=== PATIENT | female | born 1940 | race Caucasian/White ===

== ENCOUNTER 2020-12-11 15:21 | Emergency (ER) | payer MEDICARE, SELFPAY ==
[2020-12-11 15:38] VITALS: BP 141/56; PULSE 94; RESP 12; TEMP 36.7; O2SAT 100
--- NOTE | 2020-12-11 15:40 | ED.GENADULT ---
HPI - General Adult General Chief complaint: Extremity Problem,Nontraumatic Stated complaint: bloot clot Time Seen by Provider: 12/11/20 15:40 Source: patient and RN notes reviewed Mode of arrival: wheelchair Limitations: no limitations History of Present Illness HPI narrative: 80-year-old female presents with complains of of right upper leg bruising, pain, and swelling for the past 2-3 days. Eduardo reports fluctuation of swelling and pain over the past 24 to 48 hours. No treatment. History of Leukemia, recent had blood work on 12/10/2020 unable to provide lab results. Eduardo reports being on Hydroxyurea and Eliquis, in which she took this am. Eduardo reports recent long car ride of 14 hours 10 days ago, due to traveling multiple states while going to [place] to see a family member. No known injury. No radiation of pain. No numbness or tingling, or bleeding. No loss of mobility. Exacerbating factor consist of bearing weight and palpation of the area. No fever. Denies chest pain, dyspnea, or headache. Denies nausea, vomiting, and abdominal pain. Tolerating po intake well. Denies blood in stool or urine. Remains active. The patient reports she have not been diagnosed with COVID-19. The patient reports she received Moderna COVID-19 vaccine September 19, 2020 and October 21, 2020. The patient reports she is not waiting for the results of a COVID-19 lab test. The patient reports she do not have chills, weakness, or fatigue. The patient reports she do not have a new or worsening cough. The patient reports she do not have any rhinorrhea, congestion, sore throat, loss of taste or smell, and diarrhea. At this time, patient is not suspected of having COVID-19. Some parts of this dictation were generated by voice recognition software and may contain typographical and/or grammatical inaccuracies. Related Data Home Medications Medication Instructions Recorded Confirmed allopurinol 12/11/20 alprazolam 12/11/20 atenolol 12/11/20 diltiazem HCl 12/11/20 escitalopram oxalate mg 12/11/20 hydroxyurea 12/11/20 lisinopril 12/11/20 omeprazole 12/11/20 Allergies Allergy/AdvReac Type Severity Reaction Status Date / Time No Known Allergies Allergy Unverified 04/27/16 18:26 Review of Systems Review of Systems: Narrative: CONSTITUTIONAL: Denies fever, chills, sweats. EYES: Denies visual changes, redness, discharge. ENT: Denies rhinorrhea, congestion, sore throat, otalgia. CARDIOVASCULAR: Denies chest pain, palpitations, edema. RESPIRATORY: Denies dyspnea, wheezing, cough. GASTROINTESTINAL: Denies abdominal pain, nausea, vomiting, diarrhea. GENITOURINARY: Denies dysuria, hematuria, abnormal discharge SKIN: Denies rash or itching. MUSCULOSKELETAL: Denies acute back pain or myalgia. Complains of right upper leg bruising, pain, and swelling. NEUROLOGIC: Denies numbness or focal weakness. PSYCHIATRIC: Denies anxiety or depression. All other systems reviewed & are unremarkable except as noted in HPI and below. [facility] Past Medical History Medical History (Updated 12/11/20 @ 17:44 by TESS Acosta) Atrial fibrillation Hypertension Leukemia Surgical History Surgical History (Updated 12/11/20 @ 16:33 by TESS Acosta) H/O total mastectomy of left breast Family History Family History (Updated 12/11/20 @ 16:34 by TESS Acosta) Father Dementia Heart disease Mother Heart disease Social History Social History (Updated 12/11/20 @ 16:35 by TESS Acosta) Smoking status: Former smoker Tobacco type: cigarettes Second hand tobacco smoke exposure: No Alcohol intake: current Substance use: never Living arrangements: with family Occupation/Education: retired Gender identity (if verbalized by the patient): Female Sexual Orientation (if Verbalized by the Patient): Straight or Heterosexual Comments At time of signature, agree with
== END 2020-12-11 16:48 | disposition short-term general hospital (02) ==
PROVIDERS: Emergency Provider Nurse Practitioner Family
DX: R58 Hemorrhage, not elsewhere classified (principal); M79.651 Pain in right thigh; Z87.891 Personal history of nicotine dependence; I48.91 Unspecified atrial fibrillation; I10 Essential (primary) hypertension; C95.90 Leukemia, unspecified not having achieved remission; Z90.12 Acquired absence of left breast and nipple
CPT/HCPCS: 99202; G0463

== ENCOUNTER 2021-01-27 08:51 | Emergency (ER) | payer MEDICARE, SELFPAY ==
[2021-01-27] VITALS (45 sets, daily range): BP systolic 100–167; BP diastolic 61–92; PULSE 82–138; RESP 17–33; TEMP 36.8; O2SAT 80–97
--- NOTE | ~2021-01-27 | XR_ITS ---
EXAMINATION: XR chest 2V DATE: 01/27/2021 09:21 INDICATION: Shortness of breath TECHNIQUE: AP and lateral views of the chest are obtained. COMPARISON: None available FINDINGS: There are diffuse opacities throughout all lung zones, worst in the left mid and upper lung zones. There is no pleural effusion or pneumothorax. The cardiomediastinal silhouette is normal. The re is severe thoracic spondylosis. The left breast was small compared to the right, correlate for lef t breast surgery. IMPRESSION: 1. Diffuse lung disease, worst in the left mid and upper lung zones, consistent with pneumonia and/or pulmonary edema. Reviewed, dictated and finalized at location B.
--- NOTE | 2021-01-27 08:59 | ECG_ITS ---
Measurements Intervals [place] Rate: 113 P: OR: 0 QRS: 33 QRSD: 80 T: 83 QT: 334 QTc: 460 Interpretive Statements ATRIAL FIBRILLATION WITH RAPID VENTRICULAR RESPONSE VOLTAGE CRITERIA FOR LVH BORDERLINE ST-T WAVE ABNORMALITY- INF/LAT LEADS BASELINE ARTIFACT- I, II, III, AVR, AVL, AVF, V2-V6 ABNORMAL ECG Electronically Signed On 01-27-2021 9:34:47 CDT by Christopher Francis D.O.
[2021-01-27 09:22] LABS: Hematocrit 23.7 % (37.0-47.0); Hemoglobin 7.7 g/dL (12.0-15.0); Immature Platelet Fraction Pct 36.2 % (0.9-11.2); Mean Corpuscular HGB Conc 32.5 g/dl (32-36); Mean Corpuscular Hemoglobin 31.7 pg (26-34); Mean Corpuscular Volume 97.5 fl (80-100); Platelet Count Result 77 k/mm3 (150-375); Red Blood Count 2.43 M/mm3 (4.2-5.4); Red Cell Distribution Width 20.6 % (11.5-14.5)
[2021-01-27 09:24] LABS: Anion Gap 18 mmol/L (8-16); Blood Urea Nitrogen 36 mg/dL (7-17); Calcium 8.9 mg/dL (8.4-10.2); Carbon Dioxide 16 mmol/L (22-30); Chloride 100 mmol/L (98-107); Estimated CRCL calculation 18 ml/min; Estimated Glomerular Filt Rate 25; Glucose 120 mg/dL (65-105); Potassium 3.9 mmol/L (3.4-5.0); Sodium 134 mmol/L (137-145); White Blood Count 78.5 K/mm3 (4.5-10.0)
--- NOTE | 2021-01-27 09:28 | PC.NURSE ---
Samanta from lab was called to add on a BNP for room 7
--- NOTE | 2021-01-27 09:42 | ED.SOB ---
HPI - SOB/Dyspnea General Chief Complaint: Shortness of Breath/Dyspnea Stated Complaint: weakness Time Seen by Provider: 01/27/21 09:05 Source: patient and family Mode of arrival: wheelchair Limitations: no limitations History of Present Illness HPI Narrative: This is a 80 year old female that presents to the ER for weakness. Reports over the last 5 days she has become more weak and short of breath. Does report a mild cough and congestion. Reports she was recently treated with antibiotics for a sinus infection. 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 Her doctors are at [facility] where she usually gets her care. Reports she did recently have some abnormal labs, but has not followed up for these yet. She lives at home alone. Her daughter is here with her who also gives history. Denies fever, chest pain, or lower extremity edema. Related Data Home Medications Medication Instructions Recorded Confirmed allopurinol 12/11/20 alprazolam 12/11/20 atenolol 12/11/20 diltiazem HCl 12/11/20 escitalopram oxalate mg 12/11/20 omeprazole 12/11/20 Allergies Allergy/AdvReac Type Severity Reaction Status Date / Time hydroxyurea [From Hydrea] AdvReac Unknown Verified 01/27/21 09:07 Review of Systems Review of Systems: Narrative: CONSTITUTIONAL: Denies fever ENT: Reports congestion. Denies sore throat CARDIOVASCULAR: Denies chest pain, or edema. RESPIRATORY: Reports cough and dyspnea. NEUROLOGIC: Reports generalized weakness. All systems reviewed & are unremarkable except as noted in HPI and below PMFSH Past Medical History Medical History (Updated 01/27/21 @ 14:13 by Karma Garcia PA-C) Atrial fibrillation Hypertension Leukemia Surgical History Surgical History (Updated 12/11/20 @ 16:33 by TESS Acosta) H/O total mastectomy of left breast Family History Family History (Updated 12/11/20 @ 16:34 by TESS Acosta) Father Dementia Heart disease Mother Heart disease Social History Social History (Updated 12/11/20 @ 16:35 by TESS Acosta) Smoking status: Former smoker Tobacco type: cigarettes Second hand tobacco smoke exposure: No Alcohol intake: current Substance use: never Gender identity (if verbalized by the patient): Female Exam Narrative: Exam Narrative: GENERAL: Elderly, well-nourished, and in no acute distress. HEAD: Normocephalic, atraumatic. EYES: EOMI. ENT: Nares clear, no rhinorrhea or epistaxis. Mucous membranes dry. Oropharynx without tonsillar hypertrophy exudate or other lesions. Bilateral TMs pearly ackerman non-bulging NECK: Supple. No adenopathy or masses. CHEST: No respiratory distress. Rales noted throughout the lungs, (L>R). No wheezes or rhonchi HEART: Regular rate and rhythm. No murmur heard. Normal peripheral pulses. ABDOMEN: Soft, nontender, nondistended, normal active bowel sounds. EXTREMITIES: Normal range of motion. No edema. SKIN: Warm, dry, no rash. NEURO: No focal deficits. Alert and oriented x3. PSYCH: Normal mood and affect Course Consultations Consultation #1: Spoke with Dr. Bennett about patient and workup who believes patient will be better served at [facility] where her oncologist is for further evaluation and treatment if there is any possible acute need with her CML Date: 01/27/21 Time: 12:00 Consultation #2: Spoke with Jessica hospitalist FNP at [facility] about patient and work-up who accepts transfer. Patient will be awaiting bed placement Date: 01/27/21 Time: 12:30 Vital Signs Vital signs: Vital Signs Temperature 98.3 F 01/27/21 08:59 Pulse Rate 112 H 01/27/21 08:59 Respiratory Rate 24 H 01/27/21 08:59 Blood Pressure 140/78 01/27/21 08:59 Pulse Oximetry 80 L 01/27/21 08:59 Temperature 98.3 F 01/27/21 08:59 Pulse Rate 120 H 01/27/21 19:31 Respiratory Rate 24 H 01/27/21 19:31 Blood Pressure 154/92 H 01/27/21 19:01 Pulse Oximetry 97
[2021-01-27 09:49] LABS: Band Neutrophils Percent 19 % (0-6); Blastocytes 5 %; Lymphocytes Absolute Manual 7.06 K/mm3 (1.1-4.5); Monocytes Absolute Manual 6.28 K/mm3 (0.1-0.90); Monocytes Percent Manual 8 % (3-9); Neutrophils Absolute Manual 61.23 K/mm3 (1.7-7.2); Neutrophils Percent Manual 59 % (46-73); Ovalocytes 2+ (NORMAL); Platelet Estimate Decreased (Adequate); Total Cells Counted 100
[2021-01-27 09:50] LABS: Large Platelets Present; Poikilocytosis 2+ (NORMAL); Polychromasia 1+ (NORMAL); Schistocytes 1+ (NORMAL); Smudge Cells PRESENT
[2021-01-27 10:06] LABS: Base Excess ABG -5.9 mEq/l (+/-2.0); Carboxyhemoglobin 1.3 % THb (0-2.0); Device NASAL CANNULA; Fractional Inspired Oxygen 36 %; HCO3 ABG 17.5 mEq/l (22.0-26.0); Methemoglobin ABG 0.3 %THb (0-1.5); Modified Allen's Test Pass; Oxygen Content ABG 10.7 %vol (16.0-22.0); Oxygen Saturation ABG 95.4 % (95.0-100.0); Oxyhemoglobin 91.5 % THb (90.0-100.0); PCO2 ABG 26.6 mmHg (35.0-45.0); PO2 ABG 72.8 mmHg (80.0-100.0); PO2 FiO2 Ratio Arterial Blood 2.02 %; Reduced Hemoglobin 6.9 %THb (0-5.0); Site Drawn RIGHT RADIAL; Total Hemoglobin 8.2 g/dL (12.0-18.0); pH ABG 7.435 (7.350-7.450)
[2021-01-27] MEDS: METOPROLOL TARTRATE INJ 5 MG/5 ML VIAL IV PUSH (10:07)
[2021-01-27 10:08] LABS: NT Pro B Type Natriuretic Pept 21000 pg/mL (5-100)
[2021-01-27] MEDS: FUROSEMIDE INJ 40 MG/4 ML VIAL IV PUSH (10:45)
[2021-01-27 10:50] LABS: Lactic Acid Reflex 1.7 mmol/L (0.7-2.1)
[2021-01-27 10:51] LABS: Alanine Aminotransferase 10 U/L (4-35); Albumin Level 4.4 g/dL (3.5-5.1); Alkaline Phosphatase 54 U/L (38-126); Aspartate Amino Transferase 18 U/L (14-36); Bilirubin,Total 1.6 mg/dL (0.2-1.3); Lactate Dehydrogenase 822 U/L (313-618)
[2021-01-27 11:56] LABS: Procalcitonin 0.5 ng/mL
--- NOTE | 2021-01-27 12:53 | PC.NURSE ---
Up to bathroom with [address] Pt c/o dyspnea with exertion.
--- NOTE | 2021-01-27 13:10 | PC.NURSE ---
Pts son in law request a phone call when pt is put on ambulance. Can be reached at [phone] Donald
--- NOTE | 2021-01-27 18:06 | PC.NURSE ---
Nurse at [facility] unable to take report at this time.
[2021-01-27 18:16] LABS: SARS-CoV-2 RNA PCR Negative
--- NOTE | 2021-01-27 18:49 | PC.NURSE ---
made contact with [facility] to transfer pt to [facility]. company accepted with an [id number]
[2021-01-27] MEDS: ONDANSETRON INJ 4 MG/2 ML VIAL IV PUSH (19:00)
--- NOTE | 2021-01-27 19:01 | PC.NURSE ---
c/o nausea, no emesis noted. Pt noted to have increase in work of breathing and wheezing. ERP aware.
[2021-01-27] MEDS: IPRATROPIUM BR 0.02% INH SOLN 0.5 MG/2.5 ML VIAL INHALATION (19:23)
== END 2021-01-27 19:52 | disposition short-term general hospital (02) ==
PROVIDERS: Physician Assistant; Emergency Provider Emergency Medicine; PCP Internal Medicine
DX: J18.9 Pneumonia, unspecified organism (principal); J81.0 Acute pulmonary edema; Z20.828 Contact with and (suspected) exposure to other viral communicable diseases; I48.91 Unspecified atrial fibrillation; I10 Essential (primary) hypertension; Z87.891 Personal history of nicotine dependence; Z85.6 Personal history of leukemia
CPT/HCPCS: 36415; 36600; 71046; 80048; 80076; 82375; 82728; 82805; 83050; 83605; 83615; 83880; 84145; 85025; 85055; 87040; 88108; 93005; 94640; 96365; 96367; 96375; 99291; C9803; J0456; J0696; J1940; J2405; U0003; U0005